=== PATIENT | male | born 1985 | race Caucasian/White ===

== ENCOUNTER 2018-10-09 07:56 | Day surgery (SDC) | payer BC ==
[~2018-10-09 07:56] MED LIST: Lactated Ringers 1,000 ML IV SCH; Lidocaine 2% 5 ML SDV ONE; Midazolam 1 MG/ML 2 ML SDV ONE; Propofol 200 MG/20 ML SDV ONE; fentaNYL 100 MCG/2 ML SDV ONE
--- NOTE | 2018-10-09 08:25 | PCM.PREANE ---
Preanesthetic Assessment - Anesthesia/Transfusion/Family Hx Anesthesia History: Prior Anesthesia Without Reaction Family History of Anesthesia Reaction: No Transfusion History: No Prior Transfusion(s) - Review of Systems Pulmonary: No Symptoms Cardiovascular: No Symptoms Neurological: No Symptoms Other: Reports: None - Physical Assessment NPO Status Date: 10/08/18 NPO Status Time: 22:00 O2 Sat by Pulse Oximetry: 96 Respiratory Rate: 18 Vital Signs: Last Vital Signs Temp 97.3 F 10/09/18 08:15 Pulse 111 H 10/09/18 08:15 Resp 18 10/09/18 08:15 BP 140/89 10/09/18 08:15 Pulse Ox 96 10/09/18 08:15 Height: 6 ft Weight: 134.717 kg ASA Class: 2 Mental Status: Alert & Oriented x3 Airway Class: Mallampati = 1 Dentition: Reports: Normal Dentition ROM/Head Extension: Full Lungs: Clear to Auscultation, Normal Respiratory Effort Cardiovascular: Regular Rate, Regular Rhythm - Allergies Allergies/Adverse Reactions: Allergies Allergy/AdvReac Type Severity Reaction Status Date / Time No Known Allergies Allergy Verified 10/06/18 11:10 - Blood Blood Available: No - Anesthesia Plan Pre-Op Medication Ordered: None - Acknowledgements Anesthesia Type Planned: MAC Pt an Appropriate Candidate for the Planned Anesthesia: Yes Alternatives and Risks of Anesthesia Discussed w Pt/Guardian: Yes Pt/Guardian Understands and Agrees with Anesthesia Plan: Yes Additional Comments: PMH: former smoker -quit several months ago, occ BRBPR PLAN: MAC/TIVA PreAnesthesia Questionnaire Gastrointestinal History: Reports: Other (See Below) Other Gastrointestinal History: intermittent rectal bleeding Psychiatric History: Reports: Anxiety, Depression Endocrine/Metabolic History: Reports: Obesity/BMI 30+ - Past Surgical History Head Surgeries/Procedures: Reports: None GI Surgical History: Reports: Colonoscopy - SUBSTANCE USE Smoking Status *Q: Former Smoker Recreational Drug Use History: No - HOME MEDS Home Medications: Home Meds buPROPion HCl [Wellbutrin Xl] 300 mbq PO DAILY 10/06/18 [History] - CURRENT (IN HOUSE) MEDS Current Meds: Current Medications Lactated Ringer's (Ringers, Lactated) 1,000 mls @ 125 mls/hr IV ASDIRECTED JODI Last Admin: 10/09/18 08:10 Dose: 125 mls/hr Discontinued Medications Fentanyl (Sublimaze) Confirm Administered Dose 100 mcg .ROUTE .STK-MED ONE Stop: 10/09/18 07:29 Lidocaine (Xylocaine-Mpf 2%) Confirm Administered Dose 5 ml .ROUTE .STK-MED ONE Stop: 10/09/18 07:29 Midazolam HCl (Versed 1 Mg/Ml) Confirm Administered Dose 2 mg .ROUTE .STK-MED ONE Stop: 10/09/18 07:29 Propofol (Diprivan 20 Ml) Confirm Administered Dose 400 mg .ROUTE .STK-MED ONE Stop: 10/09/18 07:29
--- NOTE | 2018-10-09 10:34 | PCM.OPNOTE ---
- General Post-Op/Procedure Note Date of Surgery/Procedure: 10/09/18 Operative Procedure(s): egd w bx. colonoscopy w bx Findings: see dict [id number] Pre Op Diagnosis: BRBPR X 2 yrs Post-Op Diagnosis: duodenitis and severe proctitis Anesthesia Technique: Moderate Sedation Primary Surgeon: Gustavo Maza Pathology: 1) egd bx 2) dueodenum bx 3) random colon bx 4) inflamed colon bx at 30cm 5) proctitis bx Complications: None Condition: Good
--- NOTE | 2018-10-09 10:55 | PCM48HPAN ---
Post Anesthesia Note - EVALUATION WITHIN 48HRS OF ANESTHETIC Vital Signs in Normal Range: Yes Patient Participated in Evaluation: Yes Respiratory Function Stable: Yes Airway Patent: Yes Cardiovascular Function Stable: Yes Hydration Status Stable: Yes Pain Control Satisfactory: Yes Nausea and Vomiting Control Satisfactory: Yes Mental Status Recovered: Yes Resp Rate: 18 - COMMENTS/OBSERVATIONS Free Text/Narrative:: awake, alert, vitals stable. Walking around room texting. Good post op phase II reovery. Ready to go home. No pain, no nausea, no sore throat.
--- NOTE | 2018-10-09 17:09 | OR ---
SURGEON: Gustavo Maza MD DATE OF PROCEDURE: 10/09/2018 PREOPERATIVE DIAGNOSIS: Bright red blood per rectum for two years. POSTOPERATIVE DIAGNOSES: Esophagogastroduodenoscopy diagnosis: Duodenitis. Colonoscopy diagnosis: Severe colitis and proctitis. PROCEDURES PERFORMED: Esophagogastroduodenoscopy with biopsy, and colonoscopy with biopsy. PROCEDURE IN DETAIL: EGD: The patient was taken to the endoscopy room, and with the GROMMET WORKER, Diprivan was administered. A well-lubricated EGD scope was gently inserted through the oropharynx, down the esophagus, passing through the gastroesophageal junction, into the stomach. The mucosa was examined upon the passage. Any etiology will be noted. Once in the stomach, we continued to advance to the distal antrum, passed through the pylorus into the second portion of the duodenum. Again, the mucosa was examined for any abnormality and etiology. The scope was then retrieved back to the stomach and then retroflexed to look at the fundus of the stomach. If a biopsy was indicated, we will biopsy the antrum, body, and gastroesophageal junction. The air will be sucked out while the scope is retrieved to reduce the patient's discomfort. The patient tolerated the procedure well. There were no intraoperative complications. Dr. Maza was present through the whole procedure. Prior to surgery, a time-out had been called, the patient identified, procedure identified and antibiotic administered. Colonoscopy procedure: The patient was taken to the endoscopy room. A time out was called, patient identified, and procedure identified. Diprivan was then administrated. Patient went from awake to sleep, hearing doctor talking or door closing is normal. Perineum inspection and digital examination were then performed. A well- lubricated colonoscope was gently inserted through the rectum, advanced past the rectosigmoid junction, the descending colon, splenic flexure, transverse colon, hepatic flexure, ascending colon, arrived to the cecum. Cecum was identified as dictated in the finding. Then the scope was carefully withdrawn while attention was paid to the mucosal surface for any abnormality. Air will be sucked out during the scope withdrawal. At the rectum, retroflexed to examine any rectal diseases, fistula or hemorrhoids. During mucosal examination, abnormality was noted; picture taken and biopsy performed. Patient tolerated procedure well. There were no intraoperative complications, and Dr. Maza was present throughout the whole procedure. FINDINGS: EGD findings: 1. The patient is easily sedated with GROMMET WORKER and Diprivan. The patient is soundly snoring. 2. Oropharynx and proximal esophagus are free of disease. No stricture or inflammation. GE junction at 40 shows mild salmon-colored change, suggests mild disease. Stomach rugae is normal in appearance, and there is some petechial hemorrhaging at the greater curvature. There is moderate hemorrhaging, just petechiae, with mild inflammation of duodenum and the duodenum bulb is very inflamed and biopsy taken. Second and third portion of duodenum were grossly normal. Scope retrieved back to the stomach. Retroflexed look at the fundus of stomach, there was no hiatal hernia. Biopsy done at duodenum bulb and antrum body and GE junction and sucked out the gas while scope pulling out. Colonoscopy findings: 1. The patient is easily sedated with GROMMET WORKER and Diprivan. The patient is soundly snoring. 2. Bowel prep is left to be desirable and quite a lot of liquid stool, no semi- formed stool. 3. The patient at the anal opening area has a couple of fissure, expressed very prominent at 6 o'clock and 12 o'clock, and it is also felt hard internally such as is chronic in nature. No blood observed though and then the whole rectum all the way to 20 cm is full of inflammation and pus looking stuff, like a pseudomembranous colitis, very inflamed and very pliable to. Biopsy done all the way up to 30 cm, it is showing inflamed colitis and there is no pus up to 30 cm, and then the rest of the colon looks normal in appearance all the way to the cecum. Cecum indicated by ileocecal fold, one-to-one indentation, and appendiceal orifice, light emittance is not observed. Random biopsy done in colon because of concern about Crohn disease, and then biopsy done at 30 for inflammation and then biopsy done at the proctitis area. The patient does not have polyp, mass, growth, stricture, AV malformation, bleeding, and the patient has severe inflammation at the rectum and extended all the way to 30 cm scope colitis and proctitis. The patient really needs to be screened for Crohn disease and will discuss this at followup appointment, and probably will need to be referred for a GI specialist. GRIS / HOLLEY /[id number] ERICA
== END 2018-10-09 12:00 | disposition home or self-care (01) ==
LOC: MW.SDS 07:56
PROVIDERS: ATTEND Surgery
DX: K62.5 Hemorrhage of anus and rectum (principal); K29.80 Duodenitis without bleeding; K52.9 Noninfective gastroenteritis and colitis, unspecified; K62.89 Other specified diseases of anus and rectum; K29.50 Unspecified chronic gastritis without bleeding; F41.9 Anxiety disorder, unspecified; F32.9 Major depressive disorder, single episode, unspecified; E66.9 Obesity, unspecified; Z68.41 Body mass index [BMI] 40.0-44.9, adult; Z79.899 Other long term (current) drug therapy; Z98.890 Other specified postprocedural states; Z87.891 Personal history of nicotine dependence
CPT/HCPCS: 43239; 45380; J2001; J2250; J2704; J3010; J7120; 88305; 88312